=== PATIENT | male | born 1960 | race Caucasian/White ===

== ENCOUNTER → 2016-09-30 | Outpatient (CLI) | payer OTHER ==
[~2016-09-30] MED LIST: ACETAMINOPHEN650 M4 PO; ASPIRIN81 M2 PO; ATORVASTATIN CA80 MG PO; COREG3.125 MG PO; LIPITOR80 MG PO; NITROSTAT0.4 MG SL; SIMVASTATIN40 MG PO; ZESTRIL10 M1 PO
--- NOTE | ~2016-09-30 | TM ---
[id number] NAME: RADHA HANLEY MR#: [id number] PROCEDURE PERFORMED Exercise treadmill stress test. DESCRIPTION Resting heart rate is 61. Resting blood pressure is 134/69 mmHg. Baseline EKG shows normal sinus rhythm. No significant ST-T wave changes. PROCEDURE The patient was made to exercise on a standard Esteban protocol. Total exercise time is 13 minutes, completing 1 minute of stage 5 on a standard Esteban protocol. Test stopped because target heart rate achieved. No complaints of chest pain or extreme shortness of breath. Maximal heart rate obtained is 152, which is 94% of maximum predicted heart rate. Maximal blood pressure obtained is 190/[address]-T wave changes suggestive of ischemia. No arrhythmias noted. CONCLUSION 1. Excellent exercise tolerance. 2. There is no clinical, hemodynamic or EKG evidence of ischemia at good workload (94% of maximum predicted heart rate, 14.8 METS). 3. Normal heart rate and blood pressure response. 4. Normal regular treadmill stress test with excellent baseline exercise tolerance. Dictated by...
== END | disposition home or self-care (01) ==
LOC: CNUC 07:30 → CEKG 08:53 → CNUC 09:00
DX: Z02.1 Encounter for pre-employment examination (principal)
CPT/HCPCS: 93017